=== PATIENT | female | born 1990 | race Caucasian/White ===

== ENCOUNTER → 2021-10-30 11:05 | Outpatient (BNVA) | payer MEDICAID, SELFPAY | PROVIDERS: Visit Provider Emergency Medicine | DX: J02.9 Acute pharyngitis, unspecified (principal); J06.9 Acute upper respiratory infection, unspecified | CPT/HCPCS: 87071; 87880 ==

== ENCOUNTER → 2024-01-17 10:25 | Outpatient (BNVA) | payer MEDICAID, SELFPAY | PROVIDERS: PCP Physician Assistant; Visit Provider Family Medicine | DX: E53.8 Deficiency of other specified B group vitamins (principal); Z87.59 Personal history of other complications of pregnancy, childbirth and the puerperium; R53.81 Other malaise; R53.83 Other fatigue; E03.9 Hypothyroidism, unspecified; R42 Dizziness and giddiness; Z51.81 Encounter for therapeutic drug level monitoring; E55.9 Vitamin D deficiency, unspecified | CPT/HCPCS: 80053; 82024; 82306; 82607; 82670; 83001; 83002; 84305; 84439; 84443; 85025 ==

== ENCOUNTER → 2024-02-26 10:33 | Outpatient (BNVA) | payer MEDICAID, SELFPAY | PROVIDERS: PCP Physician Assistant; Visit Provider Family Medicine | DX: Z87.42 Personal history of other diseases of the female genital tract (principal); N93.9 Abnormal uterine and vaginal bleeding, unspecified | CPT/HCPCS: 87491; 87591; 87624 ==

== ENCOUNTER → 2024-04-23 10:19 | Outpatient (BNVA) | payer MEDICAID, SELFPAY | PROVIDERS: PCP Physician Assistant; Visit Provider Obstetrics & Gynecology | DX: R87.612 Low grade squamous intraepithelial lesion on cytologic smear of cervix (LGSIL) (principal) | CPT/HCPCS: 88305 ==

== ENCOUNTER → 2024-08-14 12:13 | Outpatient (BNVA) | payer MEDICAID, SELFPAY | PROVIDERS: PCP Physician Assistant; Visit Provider Family Medicine | DX: E03.9 Hypothyroidism, unspecified (principal); E55.9 Vitamin D deficiency, unspecified | CPT/HCPCS: 82306; 84439; 84443 ==